=== PATIENT | female | born 1995 | race Two or more races ===

== ENCOUNTER 2019-07-10 23:37 | Inpatient (IN) | payer SELFPAY ==
[~2019-07-10] VITALS: Ht 182.9 cm; Wt 165.9 kg
[2019-07-10] MEDS ORDERED: LEVO88TA3 PO (23:51)
[2019-07-10] MEDS ORDERED: PHEN30CA2 PO (23:51)
[2019-07-11 00:14] LABS: HEMATOCRIT 42.3 % (36.0-47.0); HEMOGLOBIN 13.3 g/dl (12.0-15.5); MEAN CORPUSCULAR HEMOGLOBIN 27.4 pg (27.0-33.0); MEAN CORPUSCULAR HGB CONC 31.4 g/dl (32.0-36.5); MEAN CORPUSCULAR VOLUME 87.2 fl (80.0-96.0); PLATELET COUNT, AUTOMATED 267 10^3/uL (150-450); RED BLOOD COUNT 4.85 10^6/uL (4.00-5.40); WHITE BLOOD COUNT 7.7 10^3/uL (4.0-10.0)
[2019-07-11] MEDS ORDERED: NS 1,000 ML IV ONE (00:30)
[2019-07-11 01:13] LABS: AMPHETAMINES LEVEL URINE POSITIVE (NEGATIVE); BARBITURATES URINE NEGATIVE (NEGATIVE); BENZODIAZEPINES URINE NEGATIVE (NEGATIVE); CANNABINOIDS URINE NEGATIVE (NEGATIVE); COCAINE METABOLITE URINE NEGATIVE (NEGATIVE); METHADONE URINE NEGATIVE (NEGATIVE); OPIATES URINE NEGATIVE (NEGATIVE); PHENCYCLIDINE URINE NEGATIVE (NEGATIVE)
[2019-07-11 01:58] LABS: ACETAMINOPHEN LEVEL < 2.0 UG/ML (10.0-30.0); ALBUMIN 3.9 GM/DL (3.2-5.2); ALT/SGPT 26 U/L (12-78); BILIRUBIN,DIRECT 0.1 MG/DL (0.0-0.2); BILIRUBIN,TOTAL 0.5 MG/DL (0.2-1.0); BLOOD UREA NITROGEN 12 MG/DL (7-18); CALCIUM LEVEL 9.3 MG/DL (8.5-10.1); CARBON DIOXIDE LEVEL 25 MEQ/L (21-32); CHLORIDE LEVEL 108 MEQ/L (98-107); ETHYL ALCOHOL (ETHANOL) < 0.003 % (0.000-0.010); FREE T4 1.24 NG/DL (0.76-1.46); GLOMERULAR FILTRATION RATE > 60.0 (>60); GLUCOSE, FASTING 97 MG/DL (70-100); POTASSIUM SERUM 3.9 MEQ/L (3.5-5.1); SALICYLATE LEVEL < 1.7 MG/DL (5.0-30.0); SODIUM LEVEL 143 MEQ/L (136-145); TOTAL PROTEIN 7.3 GM/DL (6.4-8.2)
[2019-07-11 02:02] LABS: HCG, SERUM QUALITATIVE NEGATIVE (NEGATIVE)
[2019-07-11] MEDS ORDERED: ONDANSETRON 4MG/2ML VIAL (J2405) IV ONE (03:45)
[2019-07-11] MEDS ORDERED: PATIENT COMMENTS (04:08)
--- NOTE | 2019-07-11 05:13 | HPEPDOC ---
[facility] Medical History & Physical Date of Admission Jul 11, 2019 Date of Service: Jul 11, 2019 Attending Physician: JANET BURRELL MD History and Physical CHIEF COMPLAINT: Suicide attempt HISTORY OF PRESENT ILLNESS: 23-year-old female with past medical history of anxiety, depression and hypothyroidism presents after suicide attempt. She has undergone a series of events over the past few days, which caused her significant anxiety to the point where she decided to overdose on her levothyroxine and phentermine earlier today. She reports taking 30 levothyroxine 88 g pills and 20 phentermine pills along with melatonin. She took these medications around 9 PM, reports experiencing dry mouth, sensation of her throat closing, anxious and was having some visual disturbances prior to coming to the emergency department. Poison control was contacted by emergency department, recommend monitoring for 24 hours prior to discharge. Patient denies any shortness of breath, chest pain, nausea, vomiting, abdominal pain or diarrhea at this time. 10 point review of system is negative except for above PAST MEDICAL HISTORY: 1. Anxiety and depression. 2. Hypothyroidism. PAST SURGICAL HISTORY: 1. Tonsillectomy. SOCIAL HISTORY: Smokes a few cigarettes a day. Hasn't smoked for 6 years. Denies alcohol use. Denies drug use FAMILY HISTORY: Adopted, doesn't know family history ALLERGIES: Please see below. HOME MEDICATIONS: Please see below. PHYSICAL EXAMINATION: VITAL SIGNS: Please see below. GENERAL: No distress, morbidly obese HEENT: Normocephalic, atraumatic, dry mucous membranes NECK: Supple CARDIOVASCULAR EXAMINATION: S1, S2, tachycardic RESPIRATORY EXAMINATION: Clear to auscultation, no wheezing ABDOMINAL EXAMINATION: Soft, nontender, nondistended, positive bowel sounds EXTREMITIES: Range of motion intact SKIN: No rash NEUROLOGICAL EXAMINATION: Alert and oriented 3, no focal deficits PSYCHIATRIC EXAMINATION: Anxious LABORATORY DATA: See below. MICROBIOLOGY: Please see below. ASSESSMENT: 23-year-old female with past medical history of anxiety, depression and hypothyroidism presents after suicide attempt. PLAN: 1. Suicide attempt. Overdosed on levothyroxine and phentermine, poison control contacted by emergency department, recommend monitoring for 24 hours prior to discharge. Patient slightly tachycardic and hypertensive, will monitor in the ICU, if tachycardia or hypertension worsens, will treat with propranolol/benzodiazepines. One-to-one ordered, IV hydration. Vital Signs Vital Signs Date Time Temp Pulse Resp B/P (MAP) Pulse Ox O2 Delivery O2 Flow Rate FiO2 07/11/19 03:22 113 111/67 (82) 98 07/11/19 01:52 18 07/10/19 23:44 97.9 Laboratory Data Labs 24H Laboratory Tests 2 07/11/19 00:06: Nucleated Red Blood Cells % (auto) 0.0, Anion Gap 10, Glomerular Filtration Rate > 60.0, Calcium Level 9.3, Total Bilirubin 0.5, Direct Bilirubin 0.1, Aspartate Amino Transf (AST/SGOT) 20, Alanine Aminotransferase (ALT/SGPT) 26, Alkaline Phosphatase 64, Total Protein 7.3, Albumin 3.9, Albumin/Globulin Ratio 1.15, Thyroid Stimulating Hormone (TSH) 3.120, Free Thyroxine 1.24, Human Chorionic Gonadotropin, Qual NEGATIVE, Salicylates Level < 1.7L, Urine Opiates Screen NEGATIVE, Urine Methadone Screen NEGATIVE, Acetaminophen Level < 2.0L, Urine Barbiturates Screen NEGATIVE, Urine Phencyclidine Screen NEGATIVE, Urine Amphetamines Screen POSITIVEH, Urine Benzodiazepines Screen NEGATIVE, Urine Cocaine Metabolite Screen NEGATIVE, Urine Cannabinoids Screen NEGATIVE, Ethyl Alcohol Level < 0.003 CBC/BMP Laboratory Tests 07/11/19 00:06 Home Medications Scheduled Levothyroxine Sodium (Levothyroxine Sodium) 88 Mcg Tablet, 88 MCG PO DAILY Phentermine HCl (Phentermine HCl) 30 Mg Capsule, 30 MG PO DAILY Miscellaneous Medications [Patient Comments] PATIENT STATES SHE IS ON AN ANTI-ANXIETY MEDICATION BUT SHE DOESN'T REMEMBER THE NAME. Allergies Coded Allergies: codeine (Verified Allergy, Unknown, hallucinations, 07/10/19) A-FIB/CHADSVASC A-FIB History Current/History of A-Fib/PAF?: No JANET BURRELL MD Jul 11, 2019 05:13
[2019-07-11 05:45] VITALS: BP 150/94
[2019-07-11 08:00] VITALS: BP 140/87
[2019-07-11] MEDS: PROPRANOLOL 10 MG TAB PO SCH ×2 (09:00→20:05)
[2019-07-11] MEDS: NS 1,000 ML IV SCH ×3 (09:03→19:51)
[2019-07-11] MEDS ORDERED: ONDANSETRON 4MG/2ML VIAL (J2405) IV PRN (10:45)
[2019-07-11] MEDS: NICOTINE 21MG/24HR 1 EA TRANSDERMAL TD PRN (10:51)
[2019-07-11 12:00] VITALS: BP 146/97
[2019-07-11 12:22] LABS: HEMATOCRIT 41.7 % (36.0-47.0); HEMOGLOBIN 13.2 g/dl (12.0-15.5); MEAN CORPUSCULAR HEMOGLOBIN 27.5 pg (27.0-33.0); MEAN CORPUSCULAR HGB CONC 31.7 g/dl (32.0-36.5); MEAN CORPUSCULAR VOLUME 86.9 fl (80.0-96.0); PLATELET COUNT, AUTOMATED 268 10^3/uL (150-450); WHITE BLOOD COUNT 6.9 10^3/uL (4.0-10.0)
[2019-07-11 12:49] LABS: BLOOD UREA NITROGEN 8 MG/DL (7-18); CALCIUM LEVEL 8.4 MG/DL (8.5-10.1); CARBON DIOXIDE LEVEL 24 MEQ/L (21-32); CHLORIDE LEVEL 110 MEQ/L (98-107); CREATININE FOR GFR 0.87 MG/DL (0.55-1.30); GLOMERULAR FILTRATION RATE > 60.0 (>60); GLUCOSE, FASTING 83 MG/DL (70-100); POTASSIUM SERUM 3.9 MEQ/L (3.5-5.1); SODIUM LEVEL 141 MEQ/L (136-145)
--- NOTE | 2019-07-11 12:49 | IPNPDOC ---
Text Note Date of Service The patient was seen on 07/11/19. NOTE Subjective: Patient stated that she feels much better today in the morning, she denied any suicidal ideation. She stated that yesterday she was overwhelmed. Also she stated that she had one suicidal attempt in the past Objective: GENERAL: Morbidly obese female HEENT: PERRLA, EOMI, no JVD NECK: Supple CARDIOVASCULAR EXAMINATION: S1, S2, tachycardic RESPIRATORY EXAMINATION: Clear to auscultation, no wheezing ABDOMINAL EXAMINATION: Soft, nontender, nondistended, positive bowel sounds EXTREMITIES: Range of motion intact SKIN: No rash NEUROLOGICAL EXAMINATION: Alert and oriented 3, no focal deficits PSYCHIATRIC EXAMINATION: Cooperative, NAD Assessment and plan: Patient is 23 years old female with history of anxiety and depression and hypothyroidism admitted to the hospital after suicidal attempt Suicidal attempt Overdosed on levothyroxine and phentermine. Urine toxic screen positive for amphetamines Patient is normotensive, tachycardia at rate 110 Appreciate/agree with psychiatrist evaluation Sitter 24 hours Tachycardia Propranolol 10 mg twice a day We will check thyroid profile VS,Demetriuse, I+O VS, Demetriuse, I+O Laboratory Tests 07/11/19 00:06 07/11/19 12:03 Vital Signs Date Time Temp Pulse Resp B/P (MAP) Pulse Ox O2 Delivery O2 Flow Rate FiO2 07/11/19 12:00 97.9 103 20 146/97 (113) 98 Room Air I&O- Last 24 Hours up to 6 AM 07/11/19 06:00 Intake Total 1000 ml Balance 1000 ml GIOVANNI MUHAMMAD DO Jul 11, 2019 12:49
[2019-07-11 13:48] LABS: FREE THYROXINE INDEX 8.8 % (1.3-4.8); T UPTAKE 40 % (30-39); THYROXINE (T4) 21.9 UG/DL (4.5-12.0)
[2019-07-11 14:00] VITALS: BP 169/105
--- NOTE | 2019-07-11 15:36 | MHCR ---
DATE OF CONSULTATION: 07/11/2019 HISTORY OF PRESENT ILLNESS: This is a 23-year-old female with a history of bipolar disorder. She took an overdose of 30 levothyroxine, 20 phentermine and unknown dose of melatonin. Patient just moved to [place] from [place] on 06/23/2019 to stay with friends who offered her a job. However, when she got here, the offer of a job never materialized, and she had second thoughts about the move. Patient had given up her job working full-time in [place] to come here to stay with her friend. Patient started hearing voices, the content of the voices was negative and critical, telling her that she was a failure. This led to her taking the overdose. Patient does have a long history of psychiatric difficulties in [place]; she was diagnosed with bipolar disorder from an early age. She has been on multiple psychotropic trials over the years but is not a good historian. Patient was on an unknown antidepressant, which she discontinued when she left [place]. Patient's mother had called in earlier to speak to the nurse. Her mother is quite supportive. The patient does have a good support system back in [place] and plans to return there as soon as possible. MENTAL STATUS EXAM: The patient is alert and oriented. She is cooperative. Affect is sad, mood is moderately depressed. No signs of pilar. She does report prominent auditory hallucinations, critical in nature. Insight and judgment are poor. Grooming and hygiene are fair. Patient is morbidly obese. Patient appears impulsive and is a potential danger to herself. No signs of cognitive deficits. DIAGNOSES: Bipolar disorder, depressed, with psychotic features, status post overdose. ASSESSMENT: Patient's condition promptly decompensated when she arrived here in [place]. She has had low grade auditory hallucinations for years, but her psychotic symptoms worsened dramatically leading her to take this overdose. Patient can benefit from inpatient psychiatric treatment, but no psychiatric beds are available at this time. PLAN: Start on a trial of Risperdal 0.5 mg three times a day to control psychotic symptoms. Patient to speak to family about eliciting her antidepressant medication. Continue one-on-one supervision. Patient will be transferred to psychiatry when a bed becomes available.
[2019-07-11 21:00] VITALS: BP 154/104
[2019-07-12] MEDS: CEPACOL LOZENGE PO PRN ×2 (03:58→08:54)
[2019-07-12 06:17] VITALS: BP 150/105
[2019-07-12 08:54] VITALS: BP 150/105
[2019-07-12] MEDS: PROPRANOLOL 10 MG TAB PO SCH (08:54)
[2019-07-12] MEDS: NICOTINE 21MG/24HR 1 EA TRANSDERMAL TD PRN (08:54)
[2019-07-12] MEDS ORDERED: lisinopriL 10 MG TAB PO SCH (09:00)
--- NOTE | 2019-07-12 11:49 | IPNPDOC ---
Text Note Date of Service The patient was seen on 07/12/19. NOTE Subjective: Patient denied any suicidal ideation. Await bed in psych unit Objective: GENERAL: Morbidly obese female HEENT: PERRLA, EOMI, no JVD NECK: Supple CARDIOVASCULAR EXAMINATION: S1, S2, tachycardic RESPIRATORY EXAMINATION: Clear to auscultation, no wheezing ABDOMINAL EXAMINATION: Soft, nontender, nondistended, positive bowel sounds EXTREMITIES: Range of motion intact SKIN: No rash NEUROLOGICAL EXAMINATION: Alert and oriented 3, no focal deficits PSYCHIATRIC EXAMINATION: Cooperative, NAD Assessment and plan: Patient is 23 years old female with history of anxiety and depression and hypothyroidism admitted to the hospital after suicidal attempt Suicidal attempt Overdosed on levothyroxine and phentermine. Urine toxic screen positive for amphetamines Patient is hypertensive, heart rate improved Psychiatrist team recommended psych inpatient unit placement. Sitter 24 hours Tachycardia Propranolol 10 mg twice a day T3, T4 elevated Levothyroxine on hold Hypertension lisinopril 10 mg daily VS,Fishbone, I+O VS, Fishbone, I+O Laboratory Tests 07/11/19 12:03 Vital Signs Date Time Temp Pulse Resp B/P (MAP) Pulse Ox O2 Delivery O2 Flow Rate FiO2 07/12/19 08:54 150/105 07/12/19 08:54 94 07/12/19 06:17 97.9 16 99 Room Air I&O- Last 24 Hours up to 6 AM 07/12/19 06:00 Intake Total 4170 ml Output Total 850 ml Balance 3320 ml GIOVANNI MUHAMMAD DO Jul 12, 2019 11:49
--- NOTE | 2019-07-12 12:51 | MHCR ---
DATE OF CONSULTATION: 07/11/2019 HISTORY OF PRESENT ILLNESS: The patient has been transferred out of the intensive care unit (ICU) up to [facility] [facility]. Patient is seen with the one-to-one nursing aid. Patient is interviewed and then the patient's mother comes in to visit. The patient states that her mood is much improved. She feels better. She states that her depressive symptoms are mild. She no longer feels suicidal. Her appetite is good. She is sleeping better. Patient's mother provides further information. The patient had been on Lexapro, unknown dosage. The patient has not been on the Lexapro for the past two to three weeks since she has been here in [place], but the mother does have the prescription medication in her car. Patient is wanting to restart it. The patient's mother wants to take the patient home. There is a family emergency, where the patient's grandfather just and the family wants to return back home, which appears reasonable. The patient does not have a history of dangerousness, according to the mother. The patient's mother feels comfortable taking responsibility for the patient during the drive home. The patient feels confident that she can be safe on the drive home as well, and has no history of acting out or behavioral issues that would place her at risk during the transportation. MENTAL STATUS EXAMINATION: The patient is alert, oriented and cooperative. Affect is much brighter. Speech is more coherent and improved. She is not suicidal. Depression is minimal. Patient does have chronic auditory hallucinations that are currently mild in nature. Insight and judgment appear reasonably good. No current signs of dangerousness. No signs of paranoia or thought disorder. No major cognitive issues. DIAGNOSIS: Bipolar, depressed ASSESSMENT: The patient appears safe to return home under the supervision of her mother. The patient does have mental health services back in [place]. PLAN: Patient will restart her Lexapro dosage and she will be on an antipsychotic medication as well. Patient's case is discussed with the attending physician. He is informed that I feel comfortable discharging the patient in the care of her mother with outpatient mental health followup back home in [place]. YUNIOR
[2019-07-12] MEDS ORDERED: LISI10TA4 PO (12:57)
[2019-07-12] MEDS ORDERED: PROP10TA56 PO (12:57)
--- NOTE | 2019-07-12 14:13 | DS.PDOC ---
Discharge Summary General Date of Admission Jul 11, 2019 at 04:34 Date of Discharge 07/12/19 Discharge Summary PROCEDURES PERFORMED DURING STAY: [None]. ADMITTING DIAGNOSES: Suicidal attempt Tachycardia Hypertension DISCHARGE DIAGNOSES: Suicidal attempt Tachycardia Hypertension COMPLICATIONS/CHIEF COMPLAINT: Anxiety/Depression, Hypothyroidism. HISTORY OF PRESENT ILLNESS:23-year-old female with past medical history of anxiety, depression and hypothyroidism presents after suicide attempt. She has undergone a series of events over the past few days, which caused her significant anxiety to the point where she decided to overdose on her levothyroxine and phentermine earlier today. She reports taking 30 levothyroxine 88 g pills and 20 phentermine pills along with melatonin. She took these me dications around 9 PM, reports experiencing dry mouth, sensation of her throat closing, anxious and was having some visual disturbances prior to coming to the emergency department. Poison control was contacted by emergency department, recommend monitoring for 24 hours prior to discharge. Patient denies any shortness of breath, chest pain, nausea, vomiting, abdominal pain or diarrhea at this time. HOSPITAL COURSE: During hospital stay patient received treatment for tachycardia with propranolol and for hypertension with lisinopril. Psychiatrist recommended to discharge patient with follow-up with psychiatrist in the outpa tient settings. On the day of discharge patient denied any suicidal ideation, she stated that her mood stable DISCHARGE MEDICATIONS: Please see below. ALLERGIES: Please see below. PHYSICAL EXAMINATION ON DISCHARGE: GENERAL: Morbidly obese female HEENT: PERRLA, EOMI, no JVD NECK: Supple CARDIOVASCULAR EXAMINATION: S1, S2, tachycardic RESPIRATORY EXAMINATION: Clear to auscultation, no wheezing ABDOMINAL EXAMINATION: Soft, nontender, nondistended, positive bowel sounds EXTREMITIES: Range of motion intact SKIN: No rash NEUROLOGICAL EXAMINATION: Alert and oriented 3, no focal deficits PSYCHIATRIC EXAMINATION: Cooperative, NAD LABORATORY DATA: Please see below. PROGNOSIS: Favorable ACTIVITY: [As tolerated]. DIET: Low carb diet, cardiac diet DISPOSITION: . Home DISCHARGE INSTRUCTIONS: Patient will need to repeat thyroid profile in 3-5 days, she can take levothyroxine after she will see PCP ITEMS TO FOLLOWUP ON ON OUTPATIENT: Follow-up with psychiatrist DISCHARGE CONDITION: Stable TIME SPENT ON DISCHARGE: Greater than 20 minutes. Vital Signs/I&Os Vital Signs Date Time Temp Pulse Resp B/P (MAP) Pulse Ox O2 Delivery O2 Flow Rate FiO2 07/12/19 08:54 150/105 07/12/19 08:54 94 07/12/19 06:17 97.9 16 99 Room Air I&O- Last 24 Hours up to 6 AM 07/12/19 05:59 Intake Total 4020 ml Output Total 850 ml Balance 3170 ml Discharge Medications Scheduled Lisinopril (Lisinopril) 10 Mg Tablet, 10 MG PO DAILY Propranolol HCl (Propranolol HCl) 10 Mg Tablet, 10 MG PO BID Miscellaneous Medications [Patient Comments] , (Reported) PATIENT STATES SHE IS ON AN ANTI-ANXIETY MEDICATION BUT SHE DOESN'T REMEMBER THE NAME. Allergies Coded Allergies: codeine (Verified Allergy, Unknown, hallucinations, 07/10/19) GIOVANNI MUHAMMAD DO Jul 12, 2019 14:13
--- NOTE | 2019-07-12 15:22 | ECGEPIP ---
[facility] - ED Test Date: 2019-07-11 Pat Name: LIVIA GERMAIN Department: Room: [place] [address] Gender: Female Anchor Tacker: gonzalo : 1995 Requested By: GT [place]inas Order Number: [id number] Reading MD: Christian Manning Measurements Intervals [place] Rate: 85 P: 61 HI: 181 QRS: 68 QRSD: 89 T: 43 QT: 364 QTc: 433 Interpretive Statements SINUS RHYTHM WITH SINUS ARRHYTHMIA NO PRIORS FOR COMPARISON Electronically Signed on 07-12-2019 15:22:42 EST by Christian Manning
== END 2019-07-12 14:10 | disposition home or self-care (01) | DRG 812 ==
LOC: M ED 23:37 → M ED INP 07-11 04:34 → M ICU 07-11 05:36 → M MS5PR 07-11 15:50
PROVIDERS: ADMIT Internal Medicine; ATTEND Internal Medicine
DX: T38.1X2A Poisoning by thyroid hormones and substitutes, intentional self-harm, initial encounter (principal); T50.5X2A Poisoning by appetite depressants, intentional self-harm, initial encounter; I10 Essential (primary) hypertension; R00.0 Tachycardia, unspecified; F41.9 Anxiety disorder, unspecified; F32.3 Major depressive disorder, single episode, severe with psychotic features; E03.9 Hypothyroidism, unspecified; F17.210 Nicotine dependence, cigarettes, uncomplicated; Z79.899 Other long term (current) drug therapy; Z88.5 Allergy status to narcotic agent; Z91.5 Personal history of self-harm